=== PATIENT | male | born 1975 | race Caucasian/White ===

== ENCOUNTER 2024-07-24 12:50 | Emergency (ER) | payer BC ==
[~2024-07-24] VITALS: Ht 167.6 cm; Wt 74.8 kg
[2024-07-24 13:08] VITALS: BP_SYST 123; PULSE 101; RESP 18; TEMP 97.6; O2SAT 96
[2024-07-24 13:36] LABS: BASOPHILS % (AUTO) 0.5 % (0.0-2.0); EOSINOPHILS % (AUTO) 0.5 % (0.0-4.0); HEMATOCRIT 40.5 % (36-54); HEMOGLOBIN 12.9 g/dL (14.0-18.0); LYMPHOCYTES # (AUTO) 1.4 K/uL (1.0-5.5); LYMPHOCYTES % (AUTO) 27.1 % (20.5-51.5); MEAN CORPUSCULAR HEMOGLOBIN 24 pg (27-31); MEAN CORPUSCULAR HGB CONC 32 % (32-36); MEAN CORPUSCULAR VOLUME 76 fL (79.0-98.0); MONOCYTES # (AUTO) 0.6 K/uL (0.0-1.0); MONOCYTES % (AUTO) 12.8 % (1.7-9.3); NEUTROPHILS % (AUTO) 59.1 % (40.0-70.0); PLATELET COUNT (AUTO) 227 K/uL (130-430); RED CELL DISTRIBUTION WIDTH 21.2 % (9.0-15.0); WHITE BLOOD COUNT (AUTO) 5.1 K/uL (4.8-10.8)
[2024-07-24 13:54] LABS: INR 1.2 (0.80-1.20); PROTHROMBIN TIME 12.7 SECS (9.5-12.5)
[2024-07-24 13:55] LABS: ALANINE AMINOTRANSFERASE 192 U/L (12-78); ALBUMIN 3.3 g/dL (3.4-4.8); ANION GAP 11 (5-15); ASPARTATE AMINOTRANSFERASE 142 U/L (10-37); CALCIUM 7.8 mg/dL (8.4-11.0); CARBON DIOXIDE 23 mmol/L (23-29); CHLORIDE 97 mmol/L (98-107); CREATININE 1.36 mg/dL (0.55-1.30); GFR AFRICAN AMERICAN 71 mL/min (>90); GFR NON AFRICAN-AMERICAN 59 mL/min (>90); GLUCOSE 348 mg/dL (74-106); POTASSIUM 3.4 mmol/L (3.5-5.1); SODIUM SERUM 131 mmol/L (136-145); TOTAL BILIRUBIN 0.5 mg/dL (0.0-1.0); TOTAL PROTEIN, SERUM 6.7 g/dL (6.4-8.3); UREA NITROGEN, BLOOD 11 mg/dL (8-21)
[2024-07-24 13:56] LABS: ALCOHOL, BLOOD 99 mg/dL (<10); AMYLASE 55 U/L (0-100); BILIRUBIN,DIRECT 0.2 mg/dL (0.0-0.3); LIPASE 77 U/L (16-77)
[2024-07-24] MEDS: ONDANSETRON 4 MG ODT TAB PO ONE (14:08)
[2024-07-24] MEDS: HYDROcodone/ACETAMIN 10-325 MG TAB PO ONE (14:09)
[2024-07-24 14:48] LABS: ACETONE, SERUM NEGATIVE (NEGATIVE)
[2024-07-24] MEDS: NACL 0.9% 2,000 ML IV ONE (15:23)
[2024-07-24] MEDS: PANTOPRAZOLE SODIUM 40 MG/VIAL (PROTONIX) IVP ONE (15:24)
[2024-07-24] MEDS: INSULIN REGULAR, HUMAN 10 UNITS/0.1 ML, 3 ML VIAL IVP ONE (15:25)
[2024-07-24] MEDS ORDERED: HYDR-3927 PO (17:13)
[2024-07-24] MEDS ORDERED: ONDA-8 TL (17:13)
[2024-07-24] MEDS ORDERED: IBUP-1971 PO (17:13)
[2024-07-24 17:36] VITALS: BP_SYST 116; PULSE 97; RESP 20; TEMP 98.8; O2SAT 98
[2024-07-24] MEDS: KETOROLAC TROMETHAMINE 60 MG/2 ML VIAL IM ONE (17:37)
== END 2024-07-24 17:36 | disposition home or self-care (01) ==
LOC: SED 12:50
DX: K29.20 Alcoholic gastritis without bleeding (principal); K80.20 Calculus of gallbladder without cholecystitis without obstruction; R74.01 Elevation of levels of liver transaminase levels; R00.0 Tachycardia, unspecified; E87.20 Acidosis, unspecified; E86.0 Dehydration; R10.13 Epigastric pain; F10.10 Alcohol abuse, uncomplicated; R51.9 Headache, unspecified; I10 Essential (primary) hypertension; E11.9 Type 2 diabetes mellitus without complications; Y90.4 Blood alcohol level of 80-99 mg/100 ml; Z79.899 Other long term (current) drug therapy
CPT/HCPCS: 99285; 70450; 96374; 96361; 71045; 80076; 80048; 82009; 82150; 83690; 85025; 85610; 85730; 36415; 74176; 82948; 83605; 96372; G0482; Q0162; J1815; J1885; J2470; J7030